=== PATIENT | female | born 1995 | race African-American/Black ===

== ENCOUNTER 2018-07-07 09:18 | Emergency (ER) | payer OTHER ==
--- NOTE | 2018-07-07 09:23 | ED Physician Documentation ---
PD HPI FEMALE - Stated complaint Stated Complaint: FEM - History obtained from History obtained from: Patient - History of Present Illness Timing - onset: How many days ago (2-3) Timing - duration: Days Timing - details: Gradual onset, Still present Associated symptoms: Vaginal pain, Vaginal discharge (white - has tried Monistat vaginal cream without improvement.). No: Fever, Genital sore/lesion, Dysuria Contributing factors: No: , Exposed to STD Similar symptoms before: Has not had sx before Recently seen: Not recently seen Review of Systems Constitutional: denies: Fever Nose: denies: Rhinorrhea / runny nose, Congestion Throat: denies: Sore throat Respiratory: denies: Cough GI: denies: Vomiting, Diarrhea PD PAST MEDICAL HISTORY - Past Medical History Cardiovascular: None : None - Present Medications Home Medications: Ambulatory Orders Medication Instructions Recorded Confirmed Clotrimazole/Betamethasone Dip 1 applic TP BID #15 cream..g. 07/07/18 [Lotrisone Cream] Fluconazole [Diflucan] 150 mg PO ONCE #1 tablet 07/07/18 Metronidazole [Flagyl] 500 mg PO BID #20 tablet 07/07/18 - Allergies Allergies/Adverse Reactions: Allergies Allergy/AdvReac Type Severity Reaction Status Date / Time No Known Drug Allergies Allergy Verified 07/07/18 09:31 PD ED PE NORMAL - Vitals Vital signs reviewed: Yes - General General: Alert and oriented X 3, No acute distress, Well developed/nourished - Abdomen Abdomen: Soft, Non tender - Female Female : Solar Panel Installer present, Other (There is some redness in the labial folds. There is some mild white discharge and also some cream medication. Vaginal exam showed a redness and uniform inflammation just at the introitus. There is some thicker white discharge. There is no obvious bacterial type discharge.) - Derm Derm: Normal color, Warm and dry - Neuro Neuro: Alert and oriented X 3, No motor deficit, Normal speech Results - Vitals Vitals: Vital Signs - 24 hr 07/07/18 09:26 Temperature 36.9 C Heart Rate 72 Respiratory 16 Rate Blood Pressure 104/58 L O2 Saturation 100 Oxygen O2 Source Room air - Labs Labs: Microbiology 07/07/18 09:54 Wet Prep - Final Genital - Vaginal 07/07/18 09:54 AGNES Preparation - Final Fluid - Vaginal PD MEDICAL DECISION MAKING - ED course Complexity details: reviewed results, considered differential, d/w patient Departure - Departure Disposition: 01 Home, Self Care Clinical Impression: Bacterial vaginitis, Yeast vaginitis Condition: Stable Record reviewed to determine appropriate education?: Yes Instructions: ED Vaginosis Bacterial, ED Vaginal Infec Fungal Margot Follow-Up: [facility] [Provider Group] Prescriptions: Clotrimazole/Betamethasone Dip [Lotrisone Cream] 1 applic TP BID #15 cream..g. Fluconazole [Diflucan] 150 mg PO ONCE #1 tablet Metronidazole [Flagyl] 500 mg PO BID #20 tablet Comments: The vaginal swab shows both significant amount of yeast but also some bacteria as well. Both of these can get off balance and overflow and cause similar symptoms. We will treated with the antifungal orally that we did here and repeat that and 3 days. Also metronidazole antibiotic twice daily for a week. You can use some combination antifungal and steroid cream just at the labia and introitus to reduce some of the redness and inflammation. Recheck if not improved over the next several days. Discharge Date/Time: 07/07/18 10:32
[2018-07-07 09:29] VITALS: BP 104/58
[2018-07-07] MEDS ORDERED: IBUPROFEN 600 MG TABLET PO STA (09:52)
[2018-07-07] MEDS ORDERED: FLUCONAZOLE 100 MG TABLET PO STA (09:52)
[2018-07-07] MEDS ORDERED: metroNIDAZOLE 250 MG TABLET PO STA (10:20)
== END 2018-07-07 10:32 | disposition home or self-care (01) ==
LOC: ED 09:18
DX: N76.0 Acute vaginitis (principal); B96.89 Other specified bacterial agents as the cause of diseases classified elsewhere; B37.3 Candidiasis of vulva and vagina
CPT/HCPCS: 87210; 87220; 99283; A9270

== ENCOUNTER 2018-08-03 11:19 | Emergency (ER) | payer OTHER ==
[2018-08-03 13:05] LABS: BILIRUBIN,URINE NEGATIVE (NEGATIVE); GLUCOSE, URINE (UA) NEGATIVE (NEGATIVE); KETONES,URINE (UA) NEGATIVE (NEGATIVE); LEUKOCYTE ESTERASE, URINE TRACE (NEGATIVE); NITRITE,URINE NEGATIVE (NEGATIVE); OCCULT BLOOD,URINE NEGATIVE (NEGATIVE); PROTEIN,URINE NEGATIVE (NEGATIVE); UROBILINOGEN,URINE 0.2 (NORMAL) E.U./dL (NORMAL)
[2018-08-03 13:10] LABS: CLARITY,URINE HAZY (CLEAR)
[2018-08-03 13:20] LABS: BACTERIA,URINE None Seen /HPF (None Seen); RBC,URINE None Seen /HPF (0-5); SQUAMOUS EPITHELIAL CELL,UR FEW Squamous (<= Few)
--- NOTE | 2018-08-03 13:57 | ED Physician Documentation ---
PD HPI FEMALE - Stated complaint Stated Complaint: FEMALE - Chief complaint Chief Complaint: UTI - History obtained from History obtained from: Patient - History of Present Illness Timing - onset: How many weeks ago (3) Timing - duration: Weeks (3) Timing - details: Gradual onset Pain level max: 0 Pain level max: 0 Associated symptoms: Other (vaginal itching). No: Fever, Chest/shoulder pain, Abdominal pain, Back pain, Pelvic pain, Vaginal pain, Vaginal bleeding, Vaginal discharge, Genital sore/lesion Contributing factors: No: , control, Oral contraceptive, Depo, IUD, Condoms, Tubal ligation, Hysterectomy, Sexually active, Not sexually active, Exposed to STD Similar symptoms before: Diagnosis (candidal vaginitis) Recently seen: Emergency Dept - Additional information Additional information: Patient recently seen for same. Treated with Flagyl and Diflucan. She states she got better for a while then started having the itching again. After that time she took a Monistat which helped the itching again but the symptoms have recurred again. No vaginal discharge. No changes in sexual partners. Review of Systems Constitutional: denies: Fever, Chills Throat: denies: Sore throat Respiratory: denies: Cough GI: denies: Nausea, Vomiting, Diarrhea : denies: Now EGA Skin: denies: Rash Musculoskeletal: denies: Neck pain, Back pain PD PAST MEDICAL HISTORY - Past Medical History Cardiovascular: None : None - Past Surgical History Past Surgical History: No - Present Medications Home Medications: Ambulatory Orders Medication Instructions Recorded Confirmed Clotrimazole/Betamethasone Dip 1 applic TP BID #15 cream..g. 07/07/18 [Lotrisone Cream] Fluconazole [Diflucan] 150 mg PO ONCE #1 tablet 07/07/18 Metronidazole [Flagyl] 500 mg PO BID #20 tablet 07/07/18 Fluconazole [Diflucan] 150 mg PO DAILY #10 tablet 08/03/18 - Allergies Allergies/Adverse Reactions: Allergies Allergy/AdvReac Type Severity Reaction Status Date / Time No Known Drug Allergies Allergy Verified 07/07/18 09:31 - Social History Does the pt smoke?: No Smoking Status: Never smoker Does the pt drink ETOH?: No Does the pt have substance abuse?: No - Immunizations Immunizations are current?: Yes PD ED PE NORMAL - Vitals Vital signs reviewed: Yes - General General: Alert and oriented X 3, No acute distress - HEENT HEENT: Moist mucous membranes - Neck Neck: Supple, no meningeal sign, No bruit - Cardiac Cardiac: RRR - Respiratory Respiratory: No respiratory distress, Clear bilaterally - Abdomen Abdomen: Soft, Non tender, Non distended - Female Female : Pt declined (pt declines repeat pelvic) - Back Back: No spinal TTP - Derm Derm: Warm and dry - Neuro Neuro: Alert and oriented X 3 Results - Vitals Vitals: Vital Signs - 24 hr 08/03/18 08/03/18 11:53 13:59 Temperature 36.4 C L 36.8 C Heart Rate 94 83 Respiratory 12 17 Rate Blood Pressure 108/57 L 102/61 O2 Saturation 100 100 Oxygen O2 Source Room air - Labs Labs: Laboratory Tests 08/03/18 08/03/18 12:53 12:53 Urine Color YELLOW Urine Clarity HAZY Urine pH 6.0 Ur Specific [place] 1.020 1.020 Urine Protein NEGATIVE Urine Glucose (UA) NEGATIVE Urine Ketones NEGATIVE Urine Occult Blood NEGATIVE Urine Nitrite NEGATIVE Urine Bilirubin NEGATIVE Urine Urobilinogen 0.2 (NORMAL) Ur Leukocyte Esterase TRACE H Urine RBC None Seen Urine WBC 4-5 Ur Squamous Epith Cells FEW Squamous Urine Bacteria None Seen Ur Microscopic Review INDICATED Urine Culture Comments INDICATED Urine HCG, Qual NEGATIVE PD MEDICAL DECISION MAKING - ED course Complexity details: reviewed old records, reviewed results, considered differential, d/w patient ED course: 22-year-old female with what sounds like recurrent vaginal candidiasis. Will treat with a longer course of Diflucan. 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 Patient declines a pelvic examination here. Patient counseled regarding signs and symptoms for which I believe and urgent re-evaluation would be necessary. Patient with good understanding of and agreement to plan and is comfortable going home at this time This document was made in part using voice recognition software. While efforts are made to proofread this document, sound alike and grammatical errors may occur. Departure - Departure Disposition: 01 Home, Self Care Clinical Impression: Candidal vaginitis Condition: Good Instructions: ED Vaginal Infec Fungal Margot Follow-Up: your,doctor in 1 week [Other] Prescriptions: Fluconazole [Diflucan] 150 mg PO DAILY #10 tablet Comments: Take the Diflucan until gone. Return if you worsen. Follow-up with your doctor for further care. If you fail to improve over the next week, you should have a repeat pelvic examination. Forms: Activity restrictions Discharge Date/Time: 08/03/18 14:11
[2018-08-03 14:01] VITALS: BP 102/61
[2018-08-03 14:04] LABS: HCG UR QUAL NEGATIVE
== END 2018-08-03 14:11 | disposition home or self-care (01) ==
LOC: ED 11:19
DX: B37.3 Candidiasis of vulva and vagina (principal); N76.0 Acute vaginitis
CPT/HCPCS: 81001; 81003; 81025; 87086; 99283